=== PATIENT | female | born 1960 | race Caucasian/White ===

== ENCOUNTER 2016-05-12 06:04 | Observation (INO) ==
[2016-05-12] MEDS ORDERED: TERBUTALINE 1 MG/ML VIAL SQ ONE ×2 (06:09→06:27)
[2016-05-12] MEDS ORDERED: methylPREDNISolone SOD SUCC 125 MG/2 ML VIAL IV ONE (06:09)
[2016-05-12] MEDS ORDERED: IPRATROPIUM/ALBUTEROL 3 ML AMPUL.NEB NEB ONE ×2 (06:09→06:27)
[2016-05-12] MEDS ORDERED: MAGNESIUM SULFATE 2 GM/50 ML BAG IV ONE (06:09)
[2016-05-12] MEDS ORDERED: LORazepam 2 MG/ML VIAL IV ONE (06:18)
[2016-05-12] MEDS ORDERED: LORazepam 2 MG/ML VIAL ONE (06:27)
[2016-05-12] MEDS ORDERED: methylPREDNISolone SOD SUCC 125 MG/2 ML VIAL ONE (06:27)
[2016-05-12] MEDS ORDERED: ALBUTEROL SULFATE 5 MG/ML NEB SOLUTION BOTTLE NEB ONE ×2 (06:37→06:59)
[2016-05-12 06:56] LABS: Basophils # (Auto) 0 K/mcL (0.0-0.3); Basophils % (Auto) 0.3 % (0.0-2.0); Eosinophils # (Auto) 0.1 K/mcL (0.0-0.7); Eosinophils % (Auto) 0.8 % (0.0-7.0); Granulocytes % (Auto) 66.2 % (38.0-78.0); Lymphocytes # (Auto) 2.2 K/mcL (1.5-4.8); Mean Cell Volume 86.3 fL (80.0-100.0); Mean Corpuscular HGB Conc 33.3 g/dL (31.0-36.0); Mean Corpuscular Hemoglobin 28.7 pg (26.0-34.0); Monocytes # (Auto) 0.8 K/mcL (0.1-0.9); Monocytes % (Auto) 8.7 % (1.0-12.0); Platelet Count 385 K/mcL (140-440); RBC 4.63 M/mcL (4.00-5.20); Red Cell Distribution Width 14.1 % (11.5-14.5)
[2016-05-12 07:15] LABS: ALT/SGPT 15 U/l (0-40); Albumin 3.7 gm/dL (3.2-5.2); Albumin/Globulin Ratio 1.1 (1.0-2.3); Alkaline Phosphatase 85 U/L (39-117); Blood Urea Nitrogen 8 mg/dl (6-20)
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
[2016-05-12] MEDS ORDERED: ACTIVATED CHARCOAL 25 GM/120 ML PO ONE (09:08)
[2016-05-12] MEDS ORDERED: ONDANSETRON 4 MG/2 ML VIAL IV ONE (09:08)
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
[2016-05-12] MEDS ORDERED: ACETAMINOPHEN 325 MG TABLET PO PRN (10:43)
[2016-05-12] MEDS ORDERED: traZODone HCL 50 MG TABLET PO PRN (10:43)
[2016-05-12] MEDS ORDERED: MAGNESIUM SULFATE 2 GM/50 ML BAG IV PRN (10:43)
[2016-05-12] MEDS ORDERED: ONDANSETRON 4 MG/2 ML VIAL IV PRN (10:43)
[2016-05-12] MEDS ORDERED: POTASSIUM CHLORIDE 20 MEQ PACKET PO PRN (10:43)
[2016-05-12] MEDS ORDERED: ACETAMINOPHEN 1,000 MG/100 ML BOTTLE IV PRN (10:43)
[2016-05-12] MEDS ORDERED: guaiFENesin/CODEINE 10 ML UDC PO PRN (10:43)
[2016-05-12 11:37] LABS: C-Reactive Protein 1.2 mg/dl (0.0-0.8)
[2016-05-12] MEDS: methylPREDNISolone SOD SUCC 125 MG/2 ML VIAL IV SCH ×2 (12:18→17:50)
[2016-05-12] MEDS: 0.9 % SODIUM CHLORIDE 10 ML SYRINGE IV SCH ×2 (12:19→20:40)
[2016-05-12] MEDS: IPRATROPIUM/ALBUTEROL 3 ML AMPUL.NEB NEB SCH ×4 (12:49→23:12)
[2016-05-12] MEDS: BUDESONIDE 0.5 MG/2 ML AMPUL.NEB NEB SCH (19:14)
[2016-05-12] MEDS: guaiFENesin/DEXTROMETHORPHAN ORAL SOL PO PRN (20:39)
[2016-05-12] MEDS: DOCUSATE SODIUM 100 MG CAPSULE PO SCH (20:40)
[2016-05-12] MEDS: HEPARIN 5,000 UNIT/ML VIAL SQ SCH (20:40)
[2016-05-12] MEDS ORDERED: SENNOSIDES/DOCUSATE SODIUM 1 TAB TABLET PO SCH (21:00)
--- NOTE | 2016-05-12 22:04 | History and Physical Report ---
DATE OF ADMISSION: 05/12/2016 DATE OF ADMISSION: 05/12/2016. REASON FOR ADMISSION: Worsening shortness of breath. HISTORY OF CHIEF COMPLAINT: Tamara is a 55-year-old with known history of smoking and history of reactive airway disease and possible COPD who recently had a flare back in March. She comes to [facility] with worsening shortness of breath that has progressed over the last couple of days with increasing purulence along with sputum volume. She did not have associated fever, chills, or headache. She endorses to significant weakness, fatigue and exercise intolerance. She normally uses inhaled bronchodilators along with nebulizers at home which failed to improve her symptoms. Initial workup in the ER was significant for COPD exacerbation. The patient was started on steroids along with bronchodilators. Hospitalist Service was consulted. At the time of examination, the patient is alert, was able to provide answers to most of the questions. She is fairly distressed. She could not sleep all night because of worsening dyspnea. She denies diarrhea, rash, joint pain, weight loss, or glandular swelling. She further denies headache, photophobia. She has not had a flu or pneumonia vaccine and has not established with a primary care physician, but endorses sick contact including her son with strep throat. She continues to actively smoke. REVIEW OF SYSTEMS: Ten-point review of system was performed and negative except the ones discussed above. PAST MEDICAL HISTORY: 1. Hyperlipidemia. 2. Reactive airway disease. ALLERGIES: CODEINE. SOCIAL HISTORY: The patient lives in the [place]. She smokes a pack a day, carrying over 40 pack year history of smoking. No history of alcoholism or substance abuse. PHYSICAL EXAMINATION: GENERAL: The patient is alert, oriented, in minimal distress from shortness of breath. BMI 25.7. Height 5 feet. VITAL SIGNS: Blood pressure 124/70, respiratory rate 18, temperature 98, pulse 94, sats 92 percent on room air, on 2 liters of oxygen. HEENT: Pupils symmetric. Oral cavity is dry. No ear or nose discharge. Head is normocephalic and atraumatic. NECK: No lymphadenopathy. HEART: S1, S2, regular rate and rhythm. No murmur. Nonlabored breathing, diminished breath sounds. ABDOMEN: Soft and nontender. LOWER EXTREMITIES: No cyanosis or clubbing. No joint swelling. SKIN: No suspicious lesions. PSYCHIATRIC: Anxious, but alert and cooperative. NEURO: Nonfocal, moving all four extremities. LABORATORY AND IMAGING: White count 9, hemoglobin 13. ESR 35. Sodium 139, potassium 3.8, creatinine 0.8, and BUN 8. CRP 1.2. Procalcitonin less than 0.5. X-ray chest: No acute process. ABG 7.43/43/72 on 2 liters of oxygen. ASSESSMENT AND PLAN: A 55-year-old admitted with acute chronic obstructive pulmonary disease exacerbation secondary to underlying reactive airway disease/smoking, likely secondary to bronchitis. 1. Acute bronchitis with chronic obstructive pulmonary disease exacerbation. Continue antibiotics. The patient can continue bronchodilators, steroids and pulmonary toilet, aggressive smoking cessation counseling performed. 2. Dyspnea secondary to above. Continue bronchodilators, steroids. 3. Hyperlipidemia. Continue statin. PLAN FOR TODAY: 1. Admit as observation. 2. Bronchodilators, breathing treatments, steroids. 3. Discharge in 24 to 48 hours once clinically improves. 4. Moderate complexit observation admit. [email or web address] Job ID: [id number] Doc ID: [id number] Wes Kaur MD MTDD
[2016-05-13] MEDS: methylPREDNISolone SOD SUCC 125 MG/2 ML VIAL IV SCH ×4 (00:15→17:46)
[2016-05-13] MEDS: IPRATROPIUM/ALBUTEROL 3 ML AMPUL.NEB NEB SCH ×4 (04:09→14:47)
[2016-05-13 05:24] LABS: Mean Cell Volume 87.6 fL (80.0-100.0); Mean Corpuscular HGB Conc 32.9 g/dL (31.0-36.0); Mean Corpuscular Hemoglobin 28.8 pg (26.0-34.0); Platelet Count 390 K/mcL (140-440); RBC 4.33 M/mcL (4.00-5.20); Red Cell Distribution Width 14.4 % (11.5-14.5)
[2016-05-13] MEDS: 0.9 % SODIUM CHLORIDE 10 ML SYRINGE IV SCH ×2 (05:27→12:03)
[2016-05-13 05:49] LABS: ALT/SGPT 13 U/l (0-40); Albumin 3.6 gm/dL (3.2-5.2); Albumin/Globulin Ratio 1.2 (1.0-2.3); Alkaline Phosphatase 98 U/L (39-117); Bilirubin,Direct < 0.2 mg/dL (0.0-0.3); Blood Urea Nitrogen 15 mg/dl (6-20); Gamma Glutamyl Transpeptidase 47 U/L (5-36); Magnesium 2.3 mg/dL (1.6-2.5); Phosphorous 3.1 mg/dL (2.7-4.5); Uric Acid 5.1 mg/dL (2.5-8.0)
[2016-05-13 06:35] LABS: Band Neutrophils % 11 % (0-10); Lymphocytes % 2 % (15-49); Platelet Estimate NORMAL (NORMAL); RBC Morphology NORMAL (NORMAL); Segmented Neutrophils % 87 % (38-78)
[2016-05-13] MEDS: BUDESONIDE 0.5 MG/2 ML AMPUL.NEB NEB SCH (07:09)
[2016-05-13] MEDS ORDERED: PANTOPRAZOLE 40 MG TABLET PO SCH (07:30)
[2016-05-13] MEDS: DOCUSATE SODIUM 100 MG CAPSULE PO SCH (08:31)
[2016-05-13] MEDS: HEPARIN 5,000 UNIT/ML VIAL SQ SCH (08:31)
[2016-05-13] MEDS ORDERED: LOVASTATIN 20 MG PO SCH (09:00)
[2016-05-13] MEDS ORDERED: MULTIVIT,THER IRON,CA,FA & MIN 1 TABLET PO SCH (09:00)
--- NOTE | 2016-05-13 10:08 | Internal Med Progress Note ---
Medical - PN: Subj Patient information: Note initiated : 05/13/16 at 10:05 am Service Date, if different from initiated Date: [] Patient: Tamara Barroso 55 y/o F admitted on 05/12/16 for SOB/COPD. Chief Complaint: [] Interval history: 05/12 patient admitted with COPD exacerbation/bronchitis secondary to smoking. Hypoxic requiring 2 L oxygen. Started on steroids bronchodilators. Aggressive sepsis smoking cessation counseling performed but patient unwilling to quit. Admitted as observation 05/13- no overnight events. Persistent cough. Improved hypoxia. Refusing to wear oxygen. On bronchodilators steroids. Patient frequently seen leaving premises to smoke - Constitutional Vitals: Vital Signs Temp Pulse Resp BP Pulse Ox 97.6 F 88 16 107/53 90 05/13/16 07:11 05/13/16 07:50 05/13/16 07:50 05/13/16 07:11 05/13/16 07:55 Period Temp Pulse Resp BP Sys/Nicholas Pulse Ox Last 24 Hr 97.6 F-98.6 F 64-110 16-22 92-124/53-75 86-95 Intake and Output 05/12/16 05/13/16 05/13/16 21:59 05:59 13:59 Intake Total 600 / 600 300 / 300 480 / 480 Balance 600 / 600 300 / 300 480 / 480 Weight 155 lb 8 oz Intake & Output: Intake & Output 05/12/16 05/13/16 05/13/16 21:59 05:59 13:59 Intake Total 600 / 600 300 / 300 480 / 480 Balance 600 / 600 300 / 300 480 / 480 Weight 155 lb 8 oz Intake: Oral 600 / 600 300 / 300 480 / 480 Other: Meal Dinner Breakfast Percent of Meal Consumed 75% 100% Feeding Ability Independent Independent # Voids 2 2 General appearance: cooperative, no acute distress Exam: alert oriented nonlabored breathing Anxiety Expiratory rhonchi Medical - PN: Obj Da - Labs CBC & Chem 7: 05/13/16 04:05 05/13/16 04:05 Labs: Abnormal Lab Results 05/13/16 05/13/16 04:05 04:05 WBC 14.4 H Seg Neutrophils % 87 H Band Neutrophils % 11 H Lymphocytes % 2 L Glucose 162 H GGT 47 H Meds: Medications Acetaminophen (Tylenol) 650 mg PO Q4-6HP PRN PRN Reason: PAIN/FEVER > 101 Albuterol/Ipratropium (Duoneb) 3 ml NEB Q4HRT [facility] Last Admin: 05/13/16 07:08 Dose: 3 ml Budesonide (Pulmicort) 0.5 mg NEB Q12 [facility] Last Admin: 05/13/16 07:09 Dose: 0.5 mg Docusate Sodium (Colace) 100 mg PO BID [facility] Last Admin: 05/13/16 08:31 Dose: 100 mg Guaifenesin (Robitussin Dm) 10 ml PO Q4HP PRN PRN Reason: Cough Last Admin: 05/12/16 20:39 Dose: 10 ml Heparin Sodium (Porcine) (Heparin) 5,000 unit SQ Q12 [facility] Last Admin: 05/13/16 08:31 Dose: 5,000 unit Magnesium Sulfate (Magnesium Sulfate) 2 gm in 50 mls @ 50 mls/hr IV UD PRN PRN Reason: MG = or < 1.7 Acetaminophen (Ofirmev) 1,000 mg in 100 mls @ 200 mls/hr IV Q6HP PRN PRN Reason: PAIN/FEVER > 101 Iron Carb/Multivit/Jal/Folic Acid (Multivitamin W/Minerals) 1 tab PO DAILY [facility] Last Admin: 05/13/16 08:31 Dose: 1 tab Methylprednisolone Sodium Succinate (Solu-Medrol) 60 mg IV Q6 [facility] Last Admin: 05/13/16 05:24 Dose: 60 mg Non-Formulary Medication (Lovastatin [Lovastatin]) 20 mg PO QDAY [facility] Last Admin: 05/13/16 08:31 Dose: Not Given Ondansetron HCl (Zofran) 4 mg IV Q4-6HP PRN PRN Reason: Nausea And Vomiting Pantoprazole Sodium (Protonix) 40 mg PO QAMAC [facility] Last Admin: 05/13/16 07:29 Dose: 40 mg Potassium Chloride (Klor-Con) 40 meq PO DAILYP PRN PRN Reason: K+ < 3.5 Senna/Docusate Sodium (Senna Plus Tablet) 1 tab PO HS [facility] Last Admin: 05/12/16 20:40 Dose: Not Given Sodium Chloride (Saline Flush) 10 ml IV Q8 [facility] Last Admin: 05/13/16 05:27 Dose: 10 ml Trazodone HCl (Desyrel) 50 mg PO HSP PRN PRN Reason: Insomnia Last Admin: 05/12/16 20:40 Dose: 50 mg Medical - PN: A/P - Time Spent With Patient Total time spent is greater than 50% in coordination of care (as documented) at patient's floor/unit and/or counseling patient: 15 - 24 minutes (1) Acute exacerbation of chronic obstructive airways disease Status: Acute Assessment and plan: * COPD exacerbation secondary to acute bronchitis with increasing dyspnea , purulence and productive sputum. continue bronchodilators and steroids * Hypoxia clinically improving. Now on room air. Patient feels claustrophobic and hence discontinued nasal oxygen herself * Tobacco dependence refusing nicotine patch. Cessationcounseling performed * hyperlipidemia on statin * DVT prophylaxis on heparin Plan * Steroids bronchodilators * Possible discharge in 24 hours on bronchodilators/steroids Current Visit: Yes Medical - PN: Qual - Stroke Symptom Onset Unknown: No - VTE Deep Vein Thrombosis/Pulmonary Embolism Present on Admission: No
[2016-05-13] MEDS: guaiFENesin/DEXTROMETHORPHAN ORAL SOL PO PRN (12:09)
[2016-05-13] MEDS ORDERED: BENZONATATE 100 MG CAPSULE PO PRN (15:08)
--- NOTE | 2016-05-13 17:18 | Discharge Plan ---
Discharge Plan - Patient/Caregiver Discharge Instructions Discharge Summary: DISCHARGE DIAGNOSIS * COPD exacerbation secondary to acute bronchitis . Responded well to bronchodilators and steroids. Dc home on oral steroids. Pt unwilling to quit smoking * Hypoxia clinically reesolved- Off O2. * Tobacco dependence - Cessation counseling performed * hyperlipidemia on statin Hospital course- please refer to progress note from today Activity: increase activity as tolerated Diet: Regular Diet Additional Instructions: Pick-up prescriptions at [facility] Follow all the written instruction for GI procedure scheduled with Dr Cool next Wednesday. Be sure to have someone with you to drive you home Stop Smoking - Follow up Plan Follow up with: Wes Kaur MD [Physician] - Puneet Cool DO [Physician] - 05/20/16 9:30 am Disposition: Home, Self-Care Prognosis: Fair Rehab Potential: Fair I certify that the patient requires SNF services.: No Overall status at discharge: patient is progressing back to baseline
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
== END 2016-05-13 18:40 | disposition home or self-care (01) ==
LOC: ED 06:04 → MEDSUR 11:03 → INTOOBSV 11:03 → MEDSUR 11:06
PROVIDERS: ADMIT Internal Medicine; ATTEND Internal Medicine